=== PATIENT | male | born 1975 | race African-American/Black ===

== ENCOUNTER 2018-06-13 10:45 | Inpatient (IN) | payer OTHER ==
[2018-06-13 11:20] VITALS: BMI 26.3
--- NOTE | 2018-06-13 13:27 | HP ---
CIWA Score Nausea/Vomitin-No Nausea/No Vomiting Muscle Tremors: 3 Anxiety: 3 Agitation: 3 Paroxysmal Sweats: 3 Orientation: 0-Oriented Tacttile Disturbances: 0-None Auditory Disturbances: 0-None Visual Disturbances: 0-None Headache: 0-None Present CIWA-Ar Total Score: 12 - Admission Criteria OASAS Guidelines: Admission for Medically Managed Detox: Requires at least one of the followin. CIWA greater than 12 2. Seizures within the past 24 hours 3. Delirium tremens within the past 24 hours 4. Hallucinations within the past 24 hours 5. Acute intervention needed for co occurring medical disorder 6. Acute intervention needed for co occurring psychiatric disorder 7. Severe withdrawal that cannot be handled at a lower level of care (continued vomiting, continued diarrhea, abnormal vital signs) requiring intravenous medication and/or fluids 8. Admission ROS [facility] - HPI Chief Complaint: i keep drinking and need to stop. Allergies/Adverse Reactions: Allergies Allergy/AdvReac Type Severity Reaction Status Date / Time No Known Allergies Allergy Verified 06/13/18 12:29 History of Present Illness: pt is a 42yrold male with a history of alcohol dependence seeking detox for treatment. pt states he is mentally challenged but understands what is being asked of him. Exam Limitations: No Limitations - Ebola screening Have you traveled outside of the country in the last 21 days: No Have you had contact with anyone from an Ebola affected area: No Have you been sick,other than usual withdrawal symptoms: No Do you have a fever: No - Review of Systems Constitutional: No Symptoms Reported, Changes in sleep Respiratory: reports: No Symptoms reported Cardiac: reports: No Symptoms Reported GI: reports: No Symptoms Reported : reports: No Symptoms Reported Musculoskeletal: reports: Muscle Pain (right leg pain a number of months ago no buising) Integumentary: reports: Flushing, Sweating Neuro: reports: Tingling, Tremors Endocrine: reports: Excessive Sweating, Flushing, Intolerance to Heat Hematology: reports: No Symptoms Reported Psychiatric: reports: Orientated x3, Agitated, Anxious Other Systems: Reviewed and Negative Patient History - Patient Medical History Hx Anemia: No Hx Asthma: No Hx Chronic Obstructive Pulmonary Disease (COPD): No Hx Cancer: No Hx Cardiac Disorders: No Hx Congestive Heart Failure: No Hx Hypertension: No Hx Hypercholesterolemia: No Hx Pacemaker: No HX Cerebrovascular Accident: No Hx Seizures: No Hx Dementia: No Hx Diabetes: No Hx Gastrointestinal Disorders: No Hx Liver Disease: No Hx Genitourinary Disorders: No Hx Sexually Transmitted Disorders: No Hx Renal Disease (ESRD): No Hx Thyroid Disease: No Hx Human Immunodeficiency Virus (HIV): No (pt denies) Hx Hepatitis C: No (pt denies) Hx Depression: No Hx Suicide Attempt: No Hx Bipolar Disorder: No Hx Schizophrenia: No Other Medical History: mentally retarded/mental disability - Patient Surgical History Past Surgical History: No Hx Neurologic Surgery: No Hx Cataract Extraction: No Hx Cardiac Surgery: No Hx Lung Surgery: No Hx Breast Surgery: No Hx Breast Biopsy: No Hx Abdominal Surgery: No Hx Appendectomy: No Hx Cholecystectomy: No Hx Genitourinary Surgery: No Hx Section: No Hx Orthopedic Surgery: No Anesthesia Reaction: No - PPD History Previous Implant?: Yes Documented Results: Negative w/o proof Implanted On Prior [facility] Admission?: No PPD to be Administered?: Yes - Reproductive History Patient is a Female of Child Bearing Age (11 -55 yrs old): No - Smoking Cessation Smoking history: Current every day smoker Have you smoked in the past 12 months: Yes Aproximately how many cigarettes per day: 20 Hx Chewing Tobacco Use: No Initiated information on smoking cessation: Yes 'Breaking Loose' booklet given: 06/13/18 - Substance & Tx. History Hx Alcohol Use: Yes Substance Use Type: Alcohol Hx Substance Use Treatment: No - Substances Abused Alcohol-vodka Route: Oral Frequency: Daily Amount used: 2 pts. vodka Age of first use: 15 Date of Last Use: 06/11/18 Family Disease History - Family Disease History Family Disease History: Diabetes: Mother, Heart Disease: Father () Admission Physical Exam S - Vital Signs Vital Signs: Vital Signs - 24 hr 06/13/18 11:17 Temperature 98.9 F Pulse Rate 97 H Respiratory 18 Rate Blood Pressure 129/96 - Physical General Appearance: Yes: Appropriately Dressed, Irritable, Sweating, Anxious HEENTM: Yes: Normal Voice, Hearing Decreased, Nasal Congestion Respiratory: Yes: Lungs Clear, Normal Breath Sounds, No Respiratory Distress Neck: Yes: No masses,lesions,Nodules Breast: Yes: Within Normal Limits Cardiology: Yes: Regular Rhythm, Regular Rate, S1, S2 Abdominal: Yes: Normal Bowel Sounds, Non Tender Genitourinary: Yes: Within Normal Limits Back: Yes: Within Normal Limits Musculoskeletal: Yes: full range of Motion Extremities: Yes: Normal Capillary Refill, Normal Inspection, Non-Tender, Tremors Neurological: Yes: Fully Oriented, Alert, Normal Response, Other Integumentary: Yes: Normal Color, Diaphoresis Lymphatic: Yes: Within Normal Limits - Diagnostic (1) Alcohol dependence with uncomplicated withdrawal Current Visit: Yes Status: Chronic (2) Nicotine dependence Current Visit: Yes Status: Chronic Qualifiers: Nicotine product type: cigarettes Substance use status: uncomplicated Qualified Code(s): F17.210 - Nicotine dependence, cigarettes, uncomplicated (3) Mentally challenged Current Visit: Yes Status: Chronic Cleared for Admission [facility] - Detox or Rehab [facility] Level of Care: Medically Managed Detox Regimen/Protocol: Librium [facility] Breath Alcohol Content Breath Alcohol Content: 0 Urine Drug Screen - Results Drug Screen Negative: Yes Inpatient Rehab Admission - Rehab Decision to Admit Inpatient rehab admission?: No
[2018-06-13] MEDS ORDERED: MAG HYDROX/AL HYDROX/SIMETH 30 ML UNIT-DOSE CUP PO PRN (13:53)
[2018-06-13] MEDS ORDERED: NICOTINE POLACRILEX 4 MG GUM BC PRN (13:53)
[2018-06-13] MEDS ORDERED: IBUPROFEN 400 MG TABLET (FP) PO PRN (13:53)
[2018-06-13] MEDS ORDERED: MAGNESIUM CITRATE 300 ML BOTTLE PO PRN (13:53)
[2018-06-13] MEDS ORDERED: P-EPHED 60MG/TRIPROLIDI 2.5MG TABLET PO PRN (13:53)
[2018-06-13] MEDS ORDERED: LOPERAMIDE HCL 2 MG CAPSULE PO PRN (13:53)
[2018-06-13] MEDS ORDERED: MAGNESIUM HYDROX 2400MG/30ML ORAL SUSPENSION 30 ML CUP PO PRN (13:53)
[2018-06-13] MEDS ORDERED: MENTHOL/PHENOL 1 EACH UD MM PRN (13:53)
[2018-06-13] MEDS ORDERED: chlordiazePOXIDE HCL 25 MG CAPSULE PO PRN (13:53)
[2018-06-13] MEDS ORDERED: ACETAMINOPHEN 325 MG TABLET (FP) PO PRN (13:53)
[2018-06-13] MEDS ORDERED: hydrOXYzine PAMOATE 50 MG CAPSULE (FP) PO PRN (13:53)
[2018-06-13] MEDS ORDERED: guaiFENesin/D-METHORPHAN HB 10 ML UNIT-DOSE CUPS PO PRN (13:53)
[2018-06-13] MEDS ORDERED: chlordiazePOXIDE HCL 25 MG CAPSULE PO ONE (14:30)
--- NOTE | 2018-06-13 16:10 | CONSULT ---
[facility] Psychiatric Consult - Data Date of interview: 06/13/18 Admission source: [facility] Identifying data: Patient is a 42 year old single male, without children, unemployed, domiciled, and is supported by SSI/SSD. This is patient's first admission to detox at [facility]. Patient admitted to for alcohol dependence. Substance Abuse History: Smoking Cessation. Smoking history: Current every day smoker. Have you smoked in the past 12 months: Yes. Aproximately how many cigarettes per day: 20. Hx Chewing Tobacco Use: No. Initiated information on smoking cessation: Yes. 'Breaking Loose' booklet given: 06/13/18. - Substance & Tx. History. Hx Alcohol Use: Yes. Substance Use Type: Alcohol. Hx Substance Use Treatment: No. - Substances Abused. Alcohol-vodka. Route: Oral. Frequency: Daily. Amount used: 2 pts. vodka. Age of first use: 15. Date of Last Use: 06/11/18 Medical History: denies. Psychiatric History: Patient denies h/o psychiatric hospitalization, outpatient care, and suicide attempt. Pharmacy claims reviewed and noted patient is prescribed zyprexa 5mg and Depakote 1000mg daily. Patient denied history of accepting psychotropic medications. Patient is unreliable. Physical/Sexual Abuse/Trauma History: denies. Mental Status Exam - Mental Status Exam Alert and Oriented to: Time, Place, Person Cognitive Function: Fair Patient Appearance: Well Groomed Mood: Withdrawn Affect: Mood Congruent Patient Behavior: Fatigued (Patient presents as fatigue and lethargic but was able to complete asssessment. ) Speech Pattern: Delayed Voice Loudness: Moderately Soft/Quiet Thought Process: Goal Oriented Thought Disorder: Not Present Hallucinations: Denies Suicidal Ideation: Denies Homicidal Ideation: Denies Insight/Judgement: Poor Sleep: Fair Appetite: Fair Muscle strength/Tone: Normal Gait/Station: Normal Psychiatric Findings - Problem List ([place] 1, 2,3) (1) Substance induced mood disorder Current Visit: Yes Status: Acute (2) Alcohol dependence with uncomplicated withdrawal Current Visit: Yes Status: Acute (3) Nicotine dependence Current Visit: Yes Status: Chronic Qualifiers: Nicotine product type: cigarettes Substance use status: uncomplicated Qualified Code(s): F17.210 - Nicotine dependence, cigarettes, uncomplicated - Initial Treatment Plan Initial Treatment Plan: Psychoeducation provided. Detox in progres. Patient is unreliable. He denies psychiatric history but as per pharmacy claims Mr. Gambino is prescribed zyprexa 5mg + Depakote 1000mg daily. Psychiatric reconsultation to follow if requested.
[2018-06-13] MEDS: chlordiazePOXIDE HCL 25 MG CAPSULE PO SCH ×2 (17:54→22:41)
[2018-06-13] MEDS ORDERED: MELATONIN 5 MG TABLETS PO PRN (22:00)
[2018-06-13] MEDS: THIAMINE HCL 100 MG TABLET (FP) PO SCH (22:41)
[2018-06-14] MEDS: chlordiazePOXIDE HCL 25 MG CAPSULE PO SCH ×4 (06:22→22:45)
[2018-06-14 10:29] LABS: BASO % 0.4 % (0-2.0); EOS % 0.5 % (0-4.5); HEMATOCRIT 43.5 % (35.4-49); HEMOGLOBIN 14.8 GM/dL (11.7-16.9); LYMPH % 43.3 % (8-40); MCH 33.1 pg (25.7-33.7); MCHC 34.2 g/dl (32.0-35.9); MEAN CELL VOLUME 96.9 fl (80-96); MEAN PLT VOLUME 8.6 fl (7.5-11.1); MONO % 7.3 % (3.8-10.2); NEUT % 48.5 % (42.8-82.8); PLATELET COUNT 299 K/MM3 (134-434); RBC 4.48 M/mm3 (4.00-5.60); RDW 13.7 % (11.9-15.9); WHITE BLOOD COUNT 7.2 K/mm3 (4.0-10.0)
[2018-06-14] MEDS: PRENATAL VITAMINS W/ FOLIC ACID TABLET (FP) PO SCH (10:36)
[2018-06-14] MEDS: NICOTINE 21 MG/24 HOURS TOPICAL PATCH TD SCH (10:36)
[2018-06-14 10:37] LABS: ALBUMIN 4.1 g/dl (3.4-5.0); ALK PHOS 82 U/L (45-117); ANION GAP 7 MMOL/L (8-16); BILIRUBIN,TOTAL 0.1 mg/dL (0.2-1); BLOOD UREA NITROGEN 7 mg/dL (7-18); CALCIUM 9.9 mg/dL (8.5-10.1); CHLORIDE 101 mmol/L (98-107); CO2 25 mmol/L (21-32); CREATININE 0.8 mg/dL (0.55-1.3); GLUCOSE,RANDOM 105 mg/dL (74-106); POTASSIUM 4.7 mmol/L (3.5-5.1); SGOT/AST 13 U/L (15-37); SGPT/ALT 14 U/L (13-61); SODIUM 132 mmol/L (136-145); TOT PROT 9.4 g/dl (6.4-8.2)
--- NOTE | 2018-06-14 18:48 | PN ---
[facility] CIWA - CIWA Score Nausea/Vomitin-No Nausea/No Vomiting Muscle Tremors: 3 Anxiety: 1-Mildly Anxious Agitation: 2 Paroxysmal Sweats: 3 Orientation: 1-Uncertain about Date Tacttile Disturbances: 0-None Auditory Disturbances: 0-None Visual Disturbances: 0-None Headache: 0-None Present CIWA-Ar Total Score: 10 S Progress Note (SOAP) Assessment: 06/14/18 18:51 pt offers no complaints Sleeping and wants to be left alone No acute distress noted Vital Signs Temperature 98.9 F 06/14/18 17:31 Pulse Rate 74 06/14/18 17:31 Respiratory Rate 18 06/14/18 17:31 Blood Pressure 123/79 06/14/18 17:31 O2 Sat by Pulse Oximetry (%) Laboratory Last Values WBC 7.2 K/mm3 (4.0-10.0) 06/14/18 05:35 RBC 4.48 M/mm3 (4.00-5.60) 06/14/18 05:35 Hgb 14.8 GM/dL (11.7-16.9) 06/14/18 05:35 Hct 43.5 % (35.4-49) 06/14/18 05:35 MCV 96.9 fl (80-96) H 06/14/18 05:35 MCH 33.1 pg (25.7-33.7) 06/14/18 05:35 MCHC 34.2 g/dl (32.0-35.9) 06/14/18 05:35 RDW 13.7 % (11.9-15.9) 06/14/18 05:35 Plt Count 299 K/MM3 (134-434) 06/14/18 05:35 MPV 8.6 fl (7.5-11.1) 06/14/18 05:35 Absolute Neuts (auto) 3.5 K/mm3 (1.5-8.0) 06/14/18 05:35 Neutrophils % 48.5 % (42.8-82.8) 06/14/18 05:35 Lymphocytes % 43.3 % (8-40) H 06/14/18 05:35 Monocytes % 7.3 % (3.8-10.2) 06/14/18 05:35 Eosinophils % 0.5 % (0-4.5) 06/14/18 05:35 Basophils % 0.4 % (0-2.0) 06/14/18 05:35 Nucleated RBC % 0 % (0-0) 06/14/18 05:35 Sodium 132 mmol/L (136-145) L 06/14/18 05:35 Potassium 4.7 mmol/L (3.5-5.1) 06/14/18 05:35 Chloride 101 mmol/L (98-107) 06/14/18 05:35 Carbon Dioxide 25 mmol/L (21-32) 06/14/18 05:35 Anion Gap 7 MMOL/L (8-16) L 06/14/18 05:35 BUN 7 mg/dL (7-18) 06/14/18 05:35 Creatinine 0.8 mg/dL (0.55-1.3) 06/14/18 05:35 Creat Clearance w eGFR > 60 (>60) 06/14/18 05:35 Random Glucose 105 mg/dL (74-106) 06/14/18 05:35 Calcium 9.9 mg/dL (8.5-10.1) 06/14/18 05:35 Total Bilirubin 0.1 mg/dL (0.2-1) L 06/14/18 05:35 AST 13 U/L (15-37) L 06/14/18 05:35 ALT 14 U/L (13-61) 06/14/18 05:35 Alkaline Phosphatase 82 U/L (45-117) 06/14/18 05:35 Total Protein 9.4 g/dl (6.4-8.2) H 06/14/18 05:35 Albumin 4.1 g/dl (3.4-5.0) 06/14/18 05:35 RPR Titer Nonreactive (NONREACTIVE) 06/14/18 05:35 labs noted Continue detox Encourage hydration
--- NOTE | 2018-06-14 22:19 | EKG ---
Test Reason : Blood Pressure : / mmHG Vent. Rate : 092 BPM Atrial Rate : 092 BPM P-R Int : 126 ms QRS Dur : 082 ms QT Int : 374 ms P-R-T Axes : 073 049 035 degrees QTc Int : 462 ms NORMAL SINUS RHYTHM NORMAL ECG NO PREVIOUS ECGS AVAILABLE Confirmed by DANG BAKER MD ([id number]) on 06/14/2018 10:18:46 PM Referred By: Confirmed By:DANG BAKER MD
[2018-06-14] MEDS: THIAMINE HCL 100 MG TABLET (FP) PO SCH (22:45)
[2018-06-15] MEDS: chlordiazePOXIDE HCL 25 MG CAPSULE PO SCH ×2 (05:59→11:24)
[2018-06-15 09:16] VITALS: BP 146/99; PULSE 104; TEMP 97.3
[2018-06-15] MEDS: NICOTINE 21 MG/24 HOURS TOPICAL PATCH TD SCH (11:24)
[2018-06-15] MEDS: PRENATAL VITAMINS W/ FOLIC ACID TABLET (FP) PO SCH (11:24)
--- NOTE | 2018-06-15 14:39 | PN ---
S CIWA - CIWA Score Nausea/Vomitin-No Nausea/No Vomiting Muscle Tremors: 1-None Visible, but [place] Anxiety: 1-Mildly Anxious Agitation: 1-Slight > Activity Paroxysmal Sweats: No Perspiration Orientation: 0-Oriented Tacttile Disturbances: 0-None Auditory Disturbances: 1-Very Mild Visual Disturbances: 0-None Headache: 0-None Present CIWA-Ar Total Score: 4
--- NOTE | 2018-06-15 15:05 | DS ---
[facility] Detox Discharge Summary Admission Date: 06/13/18 Discharge Date: 06/15/18 - History Present History: Alcohol Dependence Additional Comments: 42 years old male admitted on 06/13/18 for alcohol withdrawal stabilization report feeling better today that he is no longer vomiting nor shaking patient stated that he does not drining alcohol much once in a while denies alcohol induced seizure nor black out he lives at [facility] daily patient presented rocking back and forth gesture while talking to the script writer patient seems to be mentally challenged and minimize alcohol consumption "only Vodka" patient insists to leave the detox unit because feeling better today transportation was arranged patient avoid conversation regarding alcohol misuse Pertinent Past History: Laboratory Last Values alcohol withdrawal sx WBC 7.2 K/mm3 (4.0-10.0) 06/14/18 05:35 RBC 4.48 M/mm3 (4.00-5.60) 06/14/18 05:35 Hgb 14.8 GM/dL (11.7-16.9) 06/14/18 05:35 Hct 43.5 % (35.4-49) 06/14/18 05:35 MCV 96.9 fl (80-96) H 06/14/18 05:35 MCH 33.1 pg (25.7-33.7) 06/14/18 05:35 MCHC 34.2 g/dl (32.0-35.9) 06/14/18 05:35 RDW 13.7 % (11.9-15.9) 06/14/18 05:35 Plt Count 299 K/MM3 (134-434) 06/14/18 05:35 MPV 8.6 fl (7.5-11.1) 06/14/18 05:35 Absolute Neuts (auto) 3.5 K/mm3 (1.5-8.0) 06/14/18 05:35 Neutrophils % 48.5 % (42.8-82.8) 06/14/18 05:35 Lymphocytes % 43.3 % (8-40) H 06/14/18 05:35 Monocytes % 7.3 % (3.8-10.2) 06/14/18 05:35 Eosinophils % 0.5 % (0-4.5) 06/14/18 05:35 Basophils % 0.4 % (0-2.0) 06/14/18 05:35 Nucleated RBC % 0 % (0-0) 06/14/18 05:35 Sodium 132 mmol/L (136-145) L 06/14/18 05:35 Potassium 4.7 mmol/L (3.5-5.1) 06/14/18 05:35 Chloride 101 mmol/L (98-107) 06/14/18 05:35 Carbon Dioxide 25 mmol/L (21-32) 06/14/18 05:35 Anion Gap 7 MMOL/L (8-16) L 06/14/18 05:35 BUN 7 mg/dL (7-18) 06/14/18 05:35 Creatinine 0.8 mg/dL (0.55-1.3) 06/14/18 05:35 Creat Clearance w eGFR > 60 (>60) 06/14/18 05:35 Random Glucose 105 mg/dL (74-106) 06/14/18 05:35 Calcium 9.9 mg/dL (8.5-10.1) 06/14/18 05:35 Total Bilirubin 0.1 mg/dL (0.2-1) L 06/14/18 05:35 AST 13 U/L (15-37) L 06/14/18 05:35 ALT 14 U/L (13-61) 06/14/18 05:35 Alkaline Phosphatase 82 U/L (45-117) 06/14/18 05:35 Total Protein 9.4 g/dl (6.4-8.2) H 06/14/18 05:35 Albumin 4.1 g/dl (3.4-5.0) 06/14/18 05:35 RPR Titer Nonreactive (NONREACTIVE) 06/14/18 05:35 lab noted - Physical Exam Results Vital Signs: Vital Signs Temperature 97.3 F L 06/15/18 09:15 Pulse Rate 104 H 06/15/18 09:15 Respiratory Rate 20 06/15/18 09:15 Blood Pressure 146/99 06/15/18 09:15 O2 Sat by Pulse Oximetry (%) Pertinent Admission Physical Exam Findings: patient agrees to spend time with community self help group for support - Treatment Hospital Course: Detox Protocol Followed, Responded well Patient has Accepted a Rehab Referral to: community 12 step self help group - Medication Discharge Medications: Ambulatory Orders NK [No Known Home Medication] 06/13/18 - Diagnosis (1) Alcohol dependence with uncomplicated withdrawal Status: Acute (2) Substance induced mood disorder Status: Suspected (3) Mentally challenged Status: Chronic (4) Nicotine dependence Status: Acute Qualifiers: Nicotine product type: cigarettes Substance use status: in withdrawal Qualified Code(s): F17.213 - Nicotine dependence, cigarettes, with withdrawal - AMA Did Patient Leave Against Medical Advice: Yes
[2018-06-15] MEDS ORDERED: chlordiazePOXIDE 5 MG CAPSULE PO SCH (17:00)
[2018-06-16] MEDS ORDERED: chlordiazePOXIDE HCL 10 MG CAPSULE PO SCH (17:00)
== END 2018-06-15 13:01 | disposition left against medical advice (07) | DRG 894 ==
LOC: YASAS 10:45 → Y3N 13:50
PROVIDERS: ADMIT Surgery; ATTEND Surgery
PROC: HZ2ZZZZ Detoxification Services for Substance Abuse Treatment (ICD-10-PCS; principal; 2018-06-13)
DX: F10.230 Alcohol dependence with withdrawal, uncomplicated (principal); F17.213 Nicotine dependence, cigarettes, with withdrawal; F19.24 Other psychoactive substance dependence with psychoactive substance-induced mood disorder; F79 Unspecified intellectual disabilities
CPT/HCPCS: 36415; 80053; 85025; 86593; 93005; 93010